=== PATIENT | male | born 1995 | race Caucasian/White ===

== ENCOUNTER → 2021-02-09 14:36 | Outpatient (CLI) | payer BC, SELFPAY | PROVIDERS: PCP Family Medicine; Referring Provider Family Medicine; Visit Provider Family Medicine | DX: Z20.822 Contact with and (suspected) exposure to COVID-19 (principal) | CPT/HCPCS: 87635; U0005; U0003 ==

== ENCOUNTER 2021-08-17 00:51 | Inpatient (IN) | payer BC, SELFPAY ==
[2021-08-17] VITALS (55 sets, daily range): BP systolic 119–212; BP diastolic 66–128; PULSE 78–180; RESP 15–36; TEMP 36.3–36.8; O2SAT 88–100; BMI 65.0; BMI 64.9
--- NOTE | 2021-08-17 01:16 | EKG12_ITS ---
Test Reason : DYSRHYTHMIA Blood Pressure : / mmHG Vent. Rate : 125 BPM Atrial Rate : 125 BPM P-R Int : 182 ms QRS Dur : 090 ms QT Int : 290 ms P-R-T Axes : 056 066 015 degrees QTc Int : [address] & T wave abnormality, consider inferior ischemia Abnormal ECG Confirmed by MEENU BRUNSON, MOISE ([id number]), newspaper photo editor OLIVER CHAHAL ([id number]) on 08/18/2021 8:34:16 AM Referred By: MARCY Confirmed By:MOISE CORRIGAN MD
[2021-08-17] MEDS: 0.9% Normal Saline 1,000 ML 999 ML IV ×2 (01:23→02:22)
[2021-08-17 01:29] LABS: Absolute Lymphocyte Count 2.99 X10^3/uL (0.83-4.51); Absolute Neutrophil Count 5.4 X10^3/uL (2.0-7.7); Basophil# 0.04 X10^3/uL; Basophil% 0.4 % (0-1); Eosinophils% 2.1 % (0-5); Hematocrit 39.6 % (40-54); Hemoglobin 13.8 g/dL (13.0-16.5); Lymphocyte # 2.99 X10^3/ul (0.83-4.51); Lymphocyte % 30.7 % (19-41); Mean Corp Hgb Conc 34.8 g/dL (32-36); Mean Corpuscular Hgb 31.2 pg (27.0-32.0); Mean Corpuscular Volume 89.6 fL (80-94); Mean Platelet Vol. 11.6 fl (6.2-12.0); Monocyte# 1.05 X10^3/uL; Monocyte% 10.8 % (0-10); NRBC Flagged by Analyzer 0 % (0-5); Neutrophil # 5.42 X10^3/uL (2.7-7.7); Neutrophil % 55.5 % (47-70); Platelet Count 211 K/mm3 (150-450); RBC Distribution Width CV 12.1 % (11.6-14.6); Red Blood Count 4.42 M/mm3 (4.6-6.2); White Blood Count 9.8 K/mm3 (4.4-11.0)
--- NOTE | 2021-08-17 01:35 | EKG12_ITS ---
Test Reason : REPEAT EKG Blood Pressure : / mmHG Vent. Rate : 122 BPM Atrial Rate : 094 BPM P-R Int : 000 ms QRS Dur : 100 ms QT Int : 314 ms P-R-T Axes : 000 065 -16 degrees QTc Int : 447 ms Atrial fibrillation T wave abnormality, consider inferior ischemia Abnormal ECG Confirmed by MEENU BRUNSON, MOISE ([id number]), editor trade journal OLIVER CHAHAL ([id number]) on 08/18/2021 8:34:38 AM Referred By: MARCY Confirmed By:MOISE CORRIGAN MD
[2021-08-17 01:39] LABS: D-Dimer Quantitative (DVT/PE) < 0.27 FEU/ug/m (0.27-0.49)
[2021-08-17] MEDS: Adenosine 6 MG/2 ML Syringe IV (01:39)
[2021-08-17] MEDS: Adenosine 6 MG/2 ML Syringe 12 MG IV ×2 (01:43→01:46)
[2021-08-17 01:52] LABS: Anion Gap 8 (5-15); BUN 11 mg/dL (7-18); BUN/Creat Ratio 10.4 RATIO (10-20); Calcium,Total 9.9 mg/dL (8.5-10.1); Chloride 106 mmol/L (98-107); Creatinine, Serum 1.06 mg/dL (0.70-1.30); EST Glomerular Filtration Rate 91 mL/min (>60); Est Glom Filt Rate - Afr Amer 110 mL/min (>60); Estimated Creatinine Clearance 117.95 ml/min; Glucose 99 mg/dL (74-106); Potassium 3.1 mmol/L (3.5-5.1); Sodium Level 140 mmol/L (136-145); Thyroid Stim Hormone (TSH) 3.31 uIU/mL (0.358-3.74); Troponin-I HS 5 pg/mL (3.0-78.0)
--- NOTE | 2021-08-17 02:08 | EKG12_ITS ---
Test Reason : SVT Blood Pressure : / mmHG Vent. Rate : 180 BPM Atrial Rate : 180 BPM P-R Int : 104 ms QRS Dur : 086 ms QT Int : 272 ms P-R-T Axes : 000 085 237 degrees QTc Int : 471 ms Atrial flutter with 2 to [address] abnormality, possible lateral subendocardial injury Abnormal ECG Confirmed by MEENU BRUNSON, MOISE ([id number]), legal editor OLIVER CHAHAL ([id number]) on 08/18/2021 8:34:56 AM Referred By: MARCY Confirmed By:MOISE CORRIGAN MD
[2021-08-17] MEDS: dilTIAZem 25 MG/5 ML Vial 20 MG IV BOLUS ×2 (02:21→14:12)
[2021-08-17] MEDS: Midazolam 5 MG/ML Syringe IV ×2 (02:23→03:33)
[2021-08-17] MEDS: Propofol 200 MG/20 ML Vial IV BOLUS ×2 (02:23→03:36)
[2021-08-17] MEDS: Potassium Chloride 10mEq/100mL 10 MEQ/100 ML IV.SOLN. 100 MEQ IV BOLUS ×2 (02:25→03:26)
--- NOTE | 2021-08-17 02:41 | PCM.HP.STD ---
HPI - General General Date of Admission: 08/17/21 Date of Service: 08/17/21 Chief Complaint: Palpitations, racing heart. HPI Narrative The patient is a 26 y/o M w/ PMHx: Morbid Obesity, Chew Tobacco use who presents to the [facility] ED on 08/17/21 with history of intermittent episodes of racing heart, palpitations which have been on and off for the last 3 weeks with at least 3 episodes in the hour prior to ED presentation however had not been resolving and was more frequent prompting ED evaluation. Following ED interventions patient did transition to A. fib RVR and noted that his heart felt like it was beating irregular at this point but denies any chest pain, lightheadedness, dizziness. Work-up in the ED included T 97.3, heart rate initially 132 with decrease then to 107 however jumped up again to 175, BP initially 201/122 with most recent repeat 151/80, respiratory rate 25, 99% on room air, CBC with WBC 9.8, hemoglobin 13.8, platelet 211 without marked shift, D-dimer less than 0.27, BMP unremarkable aside potassium 3.1, magnesium 2.0, TSH 3.31, troponin. In the ED patient administered initially adenosine 6 mg IV x 1 followed up by adenosine 12 mg IV x 1 in addition to normal saline bolus x2 however it was unsuccessful therefore patient admitted to start midazolam and propofol for attempted cardioversion which transitioned him to PAF with RVR with following this Cardizem 20 mg IV bolus x1. PFSH Medical History Morbidly obese Tobacco use Medical History no medical history Home Medications No Known/Unobtainable [No Known Home Medications] 04/02/13 [History Last Taken Unknown] Allergy/AdvReac Type Severity Reaction Status Date / Time amoxicillin Allergy Rash Verified 08/17/21 00:55 Family History (Updated 08/17/21 @ 03:[address] Marika Mosquera MD) Father Diabetes Hypertension Family History other other (No marked maternal family history including DM, CA, HD.) Surgical History (Updated 08/17/21 @ 03:[address] Marika Mosquera MD) S/P adenoidectomy Social History (Updated 08/17/21 @ 03:[address] Marika Mosquera MD) household members: family Smokeless tobacco user: chewing tobacco and other alcohol intake: never substance use type: does not use ROS ROS Narrative Admission Review of Systems: CONSTITUTIONAL: No weight loss, fever, chills, + weakness or fatigue. HEENT: Eyes: No visual loss, blurred vision, double vision or yellow sclerae. Ears, Nose, Throat: No hearing loss, sneezing, congestion, runny nose or sore throat. SKIN: No rash or itching, lesions, wounds. CARDIOVASCULAR: + Palpitations/racing heart, No chest pain, chest pressure or chest discomfort, edema, orthopnea, syncopal events. RESPIRATORY: No shortness of breath, cough or sputum, wheezing, hemoptysis. GASTROINTESTINAL: No anorexia, nausea, vomiting or diarrhea, abdominal pain, melena, BRBPR. GENITOURINARY: No dysuria, frequency, urgency or retention. NEUROLOGICAL: + Headache, No dizziness, syncope, paralysis, ataxia, numbness or tingling in the extremities, focal weakness, change in bowel or bladder control, seizure. MUSCULOSKELETAL: No muscle, back pain, joint pain or stiffness. HEMATOLOGIC: No anemia, bleeding or bruising. LYMPHATICS: No enlarged nodes. No history of splenectomy. PSYCHIATRIC: No history of depression or anxiety. ENDOCRINOLOGIC: No reports of sweating, cold or heat intolerance. No polyuria or polydipsia. ALLERGIES: No history of asthma, hives, eczema or rhinitis. Vital Signs Vital Signs Vital Signs: 08/17/21 00:53 08/17/21 00:55 08/17/21 01:11 Temperature 97.3 F L Temperature Source Oral Pulse Rate 132 H 107 H Pulse Rate [1 (Initial Baseline)] Pulse Rate [2] Pulse Rate [3] Pulse Rate [4] Pulse Rate [5] Pulse Rate [6] Respiratory Rate 25 H 23 H Respiratory Rate [1 (Initial Baseline)] Respiratory Rate [2] Respiratory Rate [3] Respiratory Rate [4] Respiratory Rate [5] Respiratory Rate [6] Respiratory Effort Normal Non-Labored Blood Pressure 201/122 H 212/109 H Blood Pressure [1 (Initial Baseline)] Blood Pressure [6] Blood Pressure Mean 148 143 Pulse Ox 99 Oxygen Delivery Method Room Air Room Air Oxygen Delivery Method [1 (Initial Baseline)] Oxygen Delivery Method [2] Oxygen Delivery Method [3] Oxygen Delivery Method [4] Oxygen Delivery Method [5] Oxygen Delivery Method [6] Oxygen Flow Rate (L/min) Oxygen Flow Rate (L/min) [2] Oxygen Flow Rate (L/min) [4] Oxygen Flow Rate (L/min) [5] Oxygen Flow Rate (L/min) [6] Fraction of Inspired Oxygen (FIO2) [3] 08/17/21 01:38 08/17/21 01:55 08/17/21 01:58 Temperature Temperature Source Pulse Rate 175 H 172 H Pulse Rate [1 (Initial Baseline)] Pulse Rate [2] Pulse Rate [3] Pulse Rate [4] Pulse Rate [5] Pulse Rate [6] Respiratory Rate 24 H 35 H Respiratory Rate [1 (Initial Baseline)] Respiratory Rate [2] Respiratory Rate [3] Respiratory Rate [4] Respiratory Rate [5] Respiratory Rate [6] Respiratory Effort Blood Pressure 151/80 H 143/98 H Blood Pressure [1 (Initial Baseline)] Blood Pressure [6] Blood Pressure Mean 103 Pulse Ox 98 96 Oxygen Delivery Method Room Air Nasal Cannula Oxygen Delivery Method [1 (Initial Baseline)] Oxygen Delivery Method [2] Oxygen Delivery Method [3] Oxygen Delivery Method [4] Oxygen Delivery Method [5] Oxygen Delivery Method [6] Oxygen Flow Rate (L/min) 2 Oxygen Flow Rate (L/min) [2] Oxygen Flow Rate (L/min) [4] Oxygen Flow Rate (L/min) [5] Oxygen Flow Rate (L/min) [6] Fraction of Inspired Oxygen (FIO2) [3] 08/17/21 02:01 08/17/21 02:07 08/17/21 02:10 Temperature Temperature Source Pulse Rate Pulse Rate [1 (Initial Baseline)] 167 H Pulse Rate [2] 167 H Pulse Rate [3] 178 H Pulse Rate [4] 180 H Pulse Rate [5] 131 H Pulse Rate [6] 174 H Respiratory Rate Respiratory Rate [1 (Initial Baseline)] 36 H Respiratory Rate [2] 35 H Respiratory Rate [3] 18 Respiratory Rate [4] 30 H Respiratory Rate [5] 30 H Respiratory Rate [6] 25 H Respiratory Effort Blood Pressure Blood Pressure [1 (Initial Baseline)] 143/98 H Blood Pressure [6] 137/67 H Blood Pressure Mean Pulse Ox Oxygen Delivery Method Nasal Cannula Nasal Cannula Oxygen Delivery Method [1 (Initial Baseline)] Nasal Cannula Oxygen Delivery Method [2] Nasal Cannula Oxygen Delivery Method [3] Nasal Cannula Oxygen Delivery Method [4] Nasal Cannula Oxygen Delivery Method [5] Nasal Cannula Oxygen Delivery Method [6] Nasal Cannula Oxygen Flow Rate (L/min) 4 4 Oxygen Flow Rate (L/min) [2] 2 Oxygen Flow Rate (L/min) [4] 2 Oxygen Flow Rate (L/min) [5] 2 Oxygen Flow Rate (L/min) [6] 4 Fraction of Inspired Oxygen (FIO2) [3] 2 08/17/21 02:15 03 02:20 08/17/21 02:22 Temperature Temperature Source Pulse Rate Pulse Rate [1 (Initial Baseline)] Pulse Rate [2] Pulse Rate [3] Pulse Rate [4] Pulse Rate [5] Pulse Rate [6] Respiratory Rate Respiratory Rate [1 (Initial Baseline)] Respiratory Rate [2] Respiratory Rate [3] Respiratory Rate [4] Respiratory Rate [5] Respiratory Rate [6] Respiratory Effort Blood Pressure Blood Pressure [1 (Initial Baseline)] Blood Pressure [6] Blood Pressure Mean Pulse Ox Oxygen Delivery Method Nasal Cannula Nasal Cannula Nasal Cannula Oxygen Delivery Method [1 (Initial Baseline)] Oxygen Delivery Method [2] Oxygen Delivery Method [3] Oxygen Delivery Method [4] Oxygen Delivery Method [5] Oxygen Delivery Method [6] Oxygen Flow Rate (L/min) 4 4 96 Oxygen Flow Rate (L/min) [2] Oxygen Flow Rate (L/min) [4] Oxygen Flow Rate (L/min) [5] Oxygen Flow Rate (L/min) [6] Fraction of Inspired Oxygen (FIO2) [3] 08/17/21 02:25 Temperature Temperature Source Pulse Rate 109 H Pulse Rate [1 (Initial Baseline)] Pulse Rate [2] Pulse Rate [3] Pulse Rate [4] Pulse Rate [5] Pulse Rate [6] Respiratory Rate 23 H Respiratory Rate [1 (Initial Baseline)] Respiratory Rate [2] Respiratory Rate [3] Respiratory Rate [4] Respiratory Rate [5] Respiratory Rate [6] Respiratory Effort Blood Pressure 127/80 H Blood Pressure [1 (Initial Baseline)] Blood Pressure [6] Blood Pressure Mean 95 Pulse Ox 96 Oxygen Delivery Method Nasal Cannula Oxygen Delivery Method [1 (Initial Baseline)] Oxygen Delivery Method [2] Oxygen Delivery Method [3] Oxygen Delivery Method [4] Oxygen Delivery Method [5] Oxygen Delivery Method [6] Oxygen Flow Rate (L/min) Oxygen Flow Rate (L/min) [2] Oxygen Flow Rate (L/min) [4] Oxygen Flow Rate (L/min) [5] Oxygen Flow Rate (L/min) [6] Fraction of Inspired Oxygen (FIO2) [3] Weight Weight: 479 lb 1.032 oz Body Mass Index (BMI) 65.0 Physical Exam Narrative Physical Examination: General: Awake, alert, oriented x 3 and cooperative, seated upright in the ED bed, fatigued otherwise no acute distress, does report that he feels like his heart is beating irregularly. Skin: Normal color, normal turgor, no icterus, no cyanosis. HEENT: AT/NC, EOMI, PERRLA, MMM, no carotid bruits or JVD noted; however, thickened neck makes examination difficult. Lungs: Diminished, distant, greater bases, appropriate effort, no rales, ronchi or wheezing. Heart: Irregular irregular; no gallop, rub audible. Abdomen: Soft, morbidly obese, NTTP, no obvious distention but habitus makes examination difficult, distant normal BS, no obvious HSM; however, habitus makes examination difficult. Extremities: No cyanosis, clubbing, or edema. Neurological: Patient awake, alert, oriented as noted, cognitive function intact; pupils equally reactive to light and accommodation, cranial nerves II-XII grossly normal, moving all 4 extremities, no focal deficits, strength mildly moderately global decrease secondary to acute presentation. Psychiatric: Affect appears fatigued, no acute evidence of depressive or anxiety feelings. Results Lab / Micro Data Result Diagrams: 08/17/21 01:03 08/17/21 01:03 Labs: Laboratory Results - last 24 hr 08/17/21 01:03: D-Dimer Quant (PE/DVT) < 0.27 L 08/17/21 01:03: Sodium 140, Potassium 3.1 L, Chloride 106, Carbon Dioxide 26.0, Anion Gap 8, BUN 11, Creatinine 1.06, Estim Creat Clear Calc 117.95, Est GFR (MDRD) Af Amer 110, Est GFR (MDRD) Non-Af 91, BUN/Creatinine Ratio 10.4, Glucose 99, Calcium 9.9, Magnesium 2.0, Troponin I High Sens 5, TSH 3.31 08/17/21 01:03: WBC 9.8, RBC 4.42 L, Hgb 13.8, Hct 39.6 L, MCV 89.6, MCH 31.2, MCHC 34.8, RDW Std Deviation 40.0, RDW Coeff of Angy 12.1, Plt Count 211, MPV 11.6, Immature Gran % (Auto) 0.500, Neut % (Auto) 55.5, Lymph % (Auto) 30.7, [place] % (Auto) 10.8 H, Eos % (Auto) 2.1, Baso % (Auto) 0.4, Absolute Neuts (auto) 5.4, Absolute Lymphs (auto) 2.99, Nucleated RBC % 0 Assessment & Plan Assessment/Plan (1) Sustained SVT: (2) Atrial fibrillation with RVR: PLAN: The patient is a 26 y/o M w/ PMHx: Morbid Obesity, Tobacco use who presents to the [facility] ED on 08/17/21 with history of intermittent episodes of racing heart, palpitations which have been on and off for the last 3 weeks with at least 3 episodes in the hour prior to ED presentation however had not been resolving and was more frequent prompting ED evaluation. #1. Symptomatic supraventricular ventricular tachycardia-->PAF with RVR: In the ED patient initially trialed with adenosine both the 6 and 12 mg doses unsuccessfully eventually administered midazolam and propofol for cardioversion-->potential conversion to PAF w/ RVR followed by a Cardizem 20 mg IV bolus x 1. Will admit to PCU, maintain on monitor, cycle cardiac enzymes to be cautious, magnesium and TSH already obtained in the ED as noted, plan repeat EKG as needed, will request cardiology evaluation, per discussion with cardiology with ED physician planned attempt again now upon admission for repeat cardioversion and if successful will attempt initiation of oral beta-hossein therapy however if patient remains in A. fib RVR will initiate Cardizem drip pending cardiology evaluation, request echocardiogram. UDS is also been requested. #2. Hypokalemia: Admission K+ 3.1, magnesium 2.0 per ED, supplementation given in the ED, repeat level in AM. #3. Elevated BP without hypertension: Quite potentially associate with #1, will continue to monitor and if further elevations may need to consider additional BP regimen, as needed IV hydralazine in interim. #4. Morbid Obesity: Weight loss and lifestyle changes encouraged, nutrition consulted. #5. Chew Tobacco Abuse: Encouraged cessation, inpatient consultation per RT, NR if desired but if able hold given presentation. #6. DVT prophylaxis: SCDs, Eliquis. Charges/Coding Visit Charges Inpatient E&M: 35689 Init Hosp L3
[2021-08-17] MEDS: dilTIAZem 25 MG/5 ML Vial 10 MG IV BOLUS (03:43)
[2021-08-17] MEDS: APIXABAN 5 MG TABLET PO ×3 (04:00→20:08)
--- NOTE | 2021-08-17 04:00 | EDS_ITS ---
HPI History of Present Illness Chief Complaint: Palpitations Narrative Narrative: Patient is a 26-year-old male with no reported significant past medical history. He states that over the past week he has been having intermittent bouts where he feels like his heart is racing. He states this typically occurs when he is trying to lay down at night. He states that he does have a home pulse ox and has been checking his heart rate during this time and has been approximately 180. He states that as time is gone by he has noticed that the symptoms are occurring more frequently and lasting longer. He does admit to using 2 cans of smokeless tobacco daily as well as dry scooping his preworkout powder. However he denies any illicit drug use. He also denies any family history of cardiac dysrhythmias. And he denies any recent surgery travel or history of DVT/PE. However as he reports that his palpitations are worsening he presents for evaluation [facility] Medical History Morbidly obese Tobacco use Medical History no medical history Home Medications No Known/Unobtainable [No Known Home Medications] 04/02/13 [History Last Taken Unknown] Allergy/AdvReac Type Severity Reaction Status Date / Time amoxicillin Allergy Rash Verified 08/17/21 00:55 Family History (Updated 08/17/21 @ 03:[address] Marika Mosquera MD) Father Diabetes Hypertension Surgical History (Updated 08/17/21 @ 03:[address] Marika Mosquera MD) S/P adenoidectomy Social History (Updated 08/17/21 @ 03:[address] Marika Mosquera MD) household members: family Smokeless tobacco user: chewing tobacco and other alcohol intake: never substance use type: does not use ROS ROS ED Constitutional Constitutional ED: Denies chills or fever(s) ENT ENT ED: Denies sore throat Cardiovascular Cardiovascular: Reports palpitations and racing heartbeat; Denies chest pain Respiratory/Chest Respiratory/Chest: Denies cough or dyspnea Gastrointestinal Gastrointestinal: Denies abdominal pain, diarrhea, nausea or vomiting Genitourinary Genitourinary ED: Denies dysuria Musculoskeletal Musculoskeletal: Denies myalgias Integumentary Denies rash Neurologic Neurologic: Denies headache(s) Hematologic/Lymphatic Hematologic/Lymphatic: Denies easy bleeding or easy bruising EXAM Physical Exam Const Vital Signs: 08/17/21 00:53 08/17/21 00:55 08/17/21 01:11 Temperature 97.3 F L Temperature Source Oral Pulse Rate 132 H 107 H Pulse Rate [1 (Initial Baseline)] Pulse Rate [2] Pulse Rate [3] Pulse Rate [4] Pulse Rate [5] Pulse Rate [6] Respiratory Rate 25 H 23 H Respiratory Rate [1 (Initial Baseline)] Respiratory Rate [2] Respiratory Rate [3] Respiratory Rate [4] Respiratory Rate [5] Respiratory Rate [6] Respiratory Effort Normal Non-Labored Blood Pressure 201/122 H 212/109 H Blood Pressure [1 (Initial Baseline)] Blood Pressure [6] Blood Pressure Mean 148 143 Pulse Ox 99 Oxygen Delivery Method Room Air Room Air Oxygen Delivery Method [1 (Initial Baseline)] Oxygen Delivery Method [2] Oxygen Delivery Method [3] Oxygen Delivery Method [4] Oxygen Delivery Method [5] Oxygen Delivery Method [6] Oxygen Flow Rate (L/min) Oxygen Flow Rate (L/min) [2] Oxygen Flow Rate (L/min) [4] Oxygen Flow Rate (L/min) [5] Oxygen Flow Rate (L/min) [6] Fraction of Inspired Oxygen (FIO2) [3] 08/17/21 01:38 08/17/21 01:55 08/17/21 01:58 Temperature Temperature Source Pulse Rate 175 H 172 H Pulse Rate [1 (Initial Baseline)] Pulse Rate [2] Pulse Rate [3] Pulse Rate [4] Pulse Rate [5] Pulse Rate [6] Respiratory Rate 24 H 35 H Respiratory Rate [1 (Initial Baseline)] Respiratory Rate [2] Respiratory Rate [3] Respiratory Rate [4] Respiratory Rate [5] Respiratory Rate [6] Respiratory Effort Blood Pressure 151/80 H 143/98 H Blood Pressure [1 (Initial Baseline)] Blood Pressure [6] Blood Pressure Mean 103 Pulse Ox 98 96 Oxygen Delivery Method Room Air Nasal Cannula Oxygen Delivery Method [1 (Initial Baseline)] Oxygen Delivery Method [2] Oxygen Delivery Method [3] Oxygen Delivery Method [4] Oxygen Delivery Method [5] Oxygen Delivery Method [6] Oxygen Flow Rate (L/min) 2 Oxygen Flow Rate (L/min) [2] Oxygen Flow Rate (L/min) [4] Oxygen Flow Rate (L/min) [5] Oxygen Flow Rate (L/min) [6] Fraction of Inspired Oxygen (FIO2) [3] 08/17/21 02:01 08/17/21 02:07 08/17/21 02:10 Temperature Temperature Source Pulse Rate Pulse Rate [1 (Initial Baseline)] 167 H Pulse Rate [2] 167 H Pulse Rate [3] 178 H Pulse Rate [4] 180 H Pulse Rate [5] 131 H Pulse Rate [6] 174 H Respiratory Rate Respiratory Rate [1 (Initial Baseline)] 36 H Respiratory Rate [2] 35 H Respiratory Rate [3] 18 Respiratory Rate [4] 30 H Respiratory Rate [5] 30 H Respiratory Rate [6] 25 H Respiratory Effort Blood Pressure Blood Pressure [1 (Initial Baseline)] 143/98 H Blood Pressure [6] 137/67 H Blood Pressure Mean Pulse Ox Oxygen Delivery Method Nasal Cannula Nasal Cannula Oxygen Delivery Method [1 (Initial Baseline)] Nasal Cannula Oxygen Delivery Method [2] Nasal Cannula Oxygen Delivery Method [3] Nasal Cannula Oxygen Delivery Method [4] Nasal Cannula Oxygen Delivery Method [5] Nasal Cannula Oxygen Delivery Method [6] Nasal Cannula Oxygen Flow Rate (L/min) 4 4 Oxygen Flow Rate (L/min) [2] 2 Oxygen Flow Rate (L/min) [4] 2 Oxygen Flow Rate (L/min) [5] 2 Oxygen Flow Rate (L/min) [6] 4 Fraction of Inspired Oxygen (FIO2) [3] 2 08/17/21 02:15 08/17/21 02:20 08/17/21 02:22 Temperature Temperature Source Pulse Rate Pulse Rate [1 (Initial Baseline)] Pulse Rate [2] Pulse Rate [3] Pulse Rate [4] Pulse Rate [5] Pulse Rate [6] Respiratory Rate Respiratory Rate [1 (Initial Baseline)] Respiratory Rate [2] Respiratory Rate [3] Respiratory Rate [4] Respiratory Rate [5] Respiratory Rate [6] Respiratory Effort Blood Pressure Blood Pressure [1 (Initial Baseline)] Blood Pressure [6] Blood Pressure Mean Pulse Ox Oxygen Delivery Method Nasal Cannula Nasal Cannula Nasal Cannula Oxygen Delivery Method [1 (Initial Baseline)] Oxygen Delivery Method [2] Oxygen Delivery Method [3] Oxygen Delivery Method [4] Oxygen Delivery Method [5] Oxygen Delivery Method [6] Oxygen Flow Rate (L/min) 4 4 96 Oxygen Flow Rate (L/min) [2] Oxygen Flow Rate (L/min) [4] Oxygen Flow Rate (L/min) [5] Oxygen Flow Rate (L/min) [6] Fraction of Inspired Oxygen (FIO2) [3] 08/17/21 02:25 08/17/21 02:26 08/17/21 02:30 Temperature Temperature Source Pulse Rate 109 H 102 H 92 Pulse Rate [1 (Initial Baseline)] Pulse Rate [2] Pulse Rate [3] Pulse Rate [4] Pulse Rate [5] Pulse Rate [6] Respiratory Rate 23 H 21 H 23 H Respiratory Rate [1 (Initial Baseline)] Respiratory Rate [2] Respiratory Rate [3] Respiratory Rate [4] Respiratory Rate [5] Respiratory Rate [6] Respiratory Effort Blood Pressure 127/80 H 128/66 H 130/74 H Blood Pressure [1 (Initial Baseline)] Blood Pressure [6] Blood Pressure Mean 95 86 92 Pulse Ox 96 96 96 Oxygen Delivery Method Nasal Cannula Nasal Cannula Nasal Cannula Oxygen Delivery Method [1 (Initial Baseline)] Oxygen Delivery Method [2] Oxygen Delivery Method [3] Oxygen Delivery Method [4] Oxygen Delivery Method [5] Oxygen Delivery Method [6] Oxygen Flow Rate (L/min) 4 4 Oxygen Flow Rate (L/min) [2] Oxygen Flow Rate (L/min) [4] Oxygen Flow Rate (L/min) [5] Oxygen Flow Rate (L/min) [6] Fraction of Inspired Oxygen (FIO2) [3] 08/17/21 02:48 Temperature Temperature Source Pulse Rate 111 H Pulse Rate [1 (Initial Baseline)] Pulse Rate [2] Pulse Rate [3] Pulse Rate [4] Pulse Rate [5] Pulse Rate [6] Respiratory Rate 24 H Respiratory Rate [1 (Initial Baseline)] Respiratory Rate [2] Respiratory Rate [3] Respiratory Rate [4] Respiratory Rate [5] Respiratory Rate [6] Respiratory Effort Blood Pressure 156/80 H Blood Pressure [1 (Initial Baseline)] Blood Pressure [6] Blood Pressure Mean 105 Pulse Ox 98 Oxygen Delivery Method Nasal Cannula Oxygen Delivery Method [1 (Initial Baseline)] Oxygen Delivery Method [2] Oxygen Delivery Method [3] Oxygen Delivery Method [4] Oxygen Delivery Method [5] Oxygen Delivery Method [6] Oxygen Flow Rate (L/min) 4 Oxygen Flow Rate (L/min) [2] Oxygen Flow Rate (L/min) [4] Oxygen Flow Rate (L/min) [5] Oxygen Flow Rate (L/min) [6] Fraction of Inspired Oxygen (FIO2) [3] Positive well nourished, well developed and obese General Appearance ED: well developed Nutritional Appearance: obese HEENT Reports moist mucous membranes Eyes PERRL and EOMs intact bilaterally Neck supple Resp normal respiratory effort and clear to auscultation bilaterally Cardio regular rhythm Rate: tachycardic and other Other Details: Radial pulses are +2-4 bilaterally are equal and symmetric GI normal to inspection, nondistended, normoactive bowel sounds, non-tender, non- distended and no masses Auscultation: normoactive bowel sounds Palpation: soft Extremity normal to inspection Extremity Narrative: No asymmetric edema no pitting edema negative Homans' sign bilaterally Neuro oriented x3 and CN's II-XII intact bilaterally Sensorium / Orientation: alert Motor Exam: strength 5/5 throughout Psych mental status grossly normal Skin no rashes or lesions noted MDM MDM MDM Narrative Medical decision making narrative: Patient presented to the ER mildly tachycardic but in sinus rhythm. With his report of of palpitations a basic work-up was ordered. While blood work was pending and the patient suddenly had a change to his heart rate and rhythm. His heart rate increased to 180 to 200 bpm and it was narrow complex tachycardia that was regular nature without P waves indicating he was in SVT. Patient was given 6 then 2 doses of 12 mg of adenosine. Despite this there was no resolution of his SVT. Therefore patient underwent cardioversion. Following the cardioversion he was now in atrial fibrillation testing with RVR as his heart rate was approximately 130. He was given a Cardizem bolus and did have improvement of the heart rate down to 95 to 100 bpm. Based on the patient's rapidly evolving symptoms I did not feel safe f or him to be discharged so he will be admitted to the medicine service. I also discussed the case with cardiology who feels patient should undergo cardioversion once again as we know his atrial fibrillation has been less than 48 hours in duration because it did not begin until patient underwent cardioversion for SVT. Therefore patient was cardioverted once again. Despite maxing out the electricity at 360 J there was no resolution of the atrial fibrillation. Therefore patient will be given Eliquis for DVT/PE prophylaxis and be placed on a Cardizem drip for rate control and admitted to the hospital for further care. Patient underwent conscious sedation along with synchronized electrical cardioversion twice. Patient was given a total of 150 mg of propofol for each sedation as well as 2.5 mg of Versed for sedation. For the initial cardioversion with SVT patient was converted with 100 J of energy. For the attempted cardioversion while patient was in atrial fibrillation a max amount of 360 J were used without any type of successful rhythm change. The total time frame of conscious sedation used for both cardioversions was approximately 20 to 25 minutes. Lab Data Attestation: I reviewed the patient's lab results. Labs: Laboratory Results - last 24 hr 08/17/21 08/17/21 08/17/21 01:03 01:03 01:03 WBC 9.8 RBC 4.42 L Hgb 13.8 Hct 39.6 L MCV 89.6 MCH 31.2 MCHC 34.8 RDW Std Deviation 40.0 RDW Coeff of Angy 12.1 Plt Count 211 MPV 11.6 Immature Gran % (Auto) 0.500 Neut % (Auto) 55.5 Lymph % (Auto) 30.7 [place] % (Auto) 10.8 H Eos % (Auto) 2.1 Baso % (Auto) 0.4 Absolute Neuts (auto) 5.4 Absolute Lymphs (auto) 2.99 Nucleated RBC % 0 D-Dimer Quant (PE/DVT) < 0.27 L Sodium 140 Potassium 3.1 L Chloride 106 Carbon Dioxide 26.0 Anion Gap 8 BUN 11 Creatinine 1.06 Estim Creat Clear Calc 117.95 Est GFR (MDRD) Af Amer 110 Est GFR (MDRD) Non-Af 91 BUN/Creatinine Ratio 10.4 Glucose 99 Calcium 9.9 Magnesium 2.0 Troponin I High Sens 5 TSH 3.31 Critical Care Time Critical Care Time: Yes Critical care time (excluding procedures): - (39) Discharge Plan Dx/Rx/DC Orders Clinical Impression: Sustained SVT, Atrial fibrillation with RVR Disposition Disposition: Acute Care [facility]
--- NOTE | 2021-08-17 04:33 | ECHOCS_ITS ---
Reason For Study: PAF Procedure This was a 2D Doppler, Color Flow transthoracic echocardiogram. The study was technically difficult. Due to body habitus. Contrast injection was performed. Exam performed portable in patient room. Left Ventricle Normal LV size. Left ventricular systolic function is normal. The estimated ejection fraction is 65 %. No regional wall motion abnormalities noted. Right Ventricle Normal RV size. Normal systolic function. Atria Normal left atrium. Normal right atrium. Mitral Valve Mitral valve not well visualized. Tricuspid Valve The tricuspid valve is not well visualized. Aortic Valve The aortic valve is not well visualized. Pulmonic Valve The pulmonic valve is not well visualized. Great Vessels Normal aortic root. The pulmonary artery is normal size. Normal inferior vena cava. Pericardium/Pleural No pericardial effusion. Medication Diluted definity 3.0ml given slow IV push to enhance endocardial definition. MMode/2D Measurements & Calculations LVIDd: 4.6 cm IVSd: 1.3 cm Ao root diam: 3.5 cm LVIDs: 3.4 cm LVPWd: 1.1 cm FS: 26.0 % LAV(MOD-sp4): 64.6 ml LA A4 area: 20.4 cm2 LA dimension(2D): 3.4 cm RA A4 area: 17.3 cm2 Doppler Measurements & Calculations MV E max mane: 86.5 cm/sec Ao V2 max: 122.1 cm/sec LV V1 max: 79.3 cm/sec Ao max P.0 mmHg LV V1 max P.5 mmHg PA V2 max: 148.5 cm/sec ECHO/Echo Complete W/ Contrast Interpretation Summary Normal LV size. Left ventricular systolic function is normal. The estimated ejection fraction is 65 %. Contrast injection was performed. The study was technically limited. Ordering Physician: Marika Mosquera Referring Physician: ZEINAB PCP Performed By: Shannan Gambino RDCS, RVT
[2021-08-17] MEDS: 0.9% Normal Saline 1,000 ML 100 ML IV (04:40)
[2021-08-17 05:43] LABS: Absolute Lymphocyte Count 1.45 X10^3/uL (0.83-4.51); Basophil# 0.03 X10^3/uL; Basophil% 0.4 % (0-1); Eosinophil# 0.12 X10^3/uL; Eosinophils% 1.6 % (0-5); Hematocrit 39.3 % (40-54); Hemoglobin 13.4 g/dL (13.0-16.5); Lymphocyte # 1.45 X10^3/ul (0.83-4.51); Lymphocyte % 19.7 % (19-41); Mean Corp Hgb Conc 34.1 g/dL (32-36); Mean Platelet Vol. 11.7 fl (6.2-12.0); Monocyte# 0.75 X10^3/uL; Monocyte% 10.2 % (0-10); NRBC Flagged by Analyzer 0 % (0-5); Neutrophil # 4.96 X10^3/uL (2.7-7.7); Neutrophil % 67.6 % (47-70); Platelet Count 183 K/mm3 (150-450); RBC Distribution Width CV 12.1 % (11.6-14.6); RBC Distribution Width SD 40.2 fl (35.1-43.9); Red Blood Count 4.32 M/mm3 (4.6-6.2); White Blood Count 7.4 K/mm3 (4.4-11.0)
[2021-08-17 06:01] LABS: ALB/GLOB Ratio 1.1 RATIO (0.9-2.4); AST(SGOT) 34 U/L (15-37); Alanine Aminotransfer ALT/SGPT 71 U/L (16-61); Albumin, Serum 3.7 g/dL (3.2-5.0); Alkaline Phosphatase 76 U/L (45-117); Anion Gap 10 (5-15); BUN 9 mg/dL (7-18); BUN/Creat Ratio 10.6 RATIO (10-20); Calcium,Total 8.7 mg/dL (8.5-10.1); Chloride 108 mmol/L (98-107); Creatinine, Serum 0.85 mg/dL (0.70-1.30); EST Glomerular Filtration Rate 117 mL/min (>60); Est Glom Filt Rate - Afr Amer 142 mL/min (>60); Estimated Creatinine Clearance 147.08 ml/min; Globulin 3.5 g/dL (2.2-4.2); Glucose 88 mg/dL (74-106); Potassium 3.8 mmol/L (3.5-5.1); Protein, Total 7.2 g/dL (6.4-8.2); Sodium Level 140 mmol/L (136-145); Troponin-I HS 6 pg/mL (3.0-78.0)
[2021-08-17 07:55] LABS: Troponin-I HS 7 pg/mL (3.0-78.0)
--- NOTE | 2021-08-17 09:01 | EKG12_ITS ---
Test Reason : RYTHM CHANGE Blood Pressure : / mmHG Vent. Rate : 149 BPM Atrial Rate : 131 BPM P-R Int : 000 ms QRS Dur : 078 ms QT Int : 304 ms P-R-T Axes : 000 071 -70 degrees QTc Int : 478 ms Supraventricular tachycardia -Prob atrial flutter with 2:1 ST & T wave abnormality, consider inferior ischemia Abnormal ECG When compared with ECG of 17-AUG-2021 10:37, MANUAL COMPARISON REQUIRED, DATA IS UNCONFIRMED Confirmed by MEENU BRUNSON, MOISE ([id number]), video tape editor OLIVER CHAHAL ([id number]) on 08/18/2021 9:24:11 AM Referred By: MEENU Confirmed By:MOISE CORRIGAN MD
--- NOTE | 2021-08-17 09:03 | CON.PCM.CA_ITS ---
Assessment & Plan Assessment/Plan (1) Atrial fibrillation with RVR: PLAN: He does have new onset atrial fibrillation which is less than 12 hours. He has received oral Eliquis and is currently on IV diltiazem. I would recommend an echocardiogram to assess his ventricular function and then attempt a repeat DC cardioversion. Depending on the findings further recommendations will be made. At this particular time his chads vasc score is probably 1. * He certainly needs to be evaluated for sleep apnea and to be treated for the above otherwise it is unlikely that he would remain in sinus rhythm. I have discussed this with him he understands and agrees to proceed. * * Thank you for allowing me to participate in the care of your patient. Please don't hesitate to call if any issues arise. HPI Consult Data Date of Consult: 08/17/21 HPI Narrative HPI Narrative: SAMY THOMAS, is a 26 M who presents to the emergency with intermittent episodes of his heart racing and palpitations over the last 3 weeks or so. They were not resolving and so he decided to present to the emergency room around 3 or 4 AM. He denied any chest pain lightheadedness or dizziness. He was seen in the emergency room his heart rate was initially 132 bpm and was thought to be in a supraventricular tachyarrhythmia for which he received adenosine 6 mg followed by 12 mg and then he had DC cardioversion. This subsequently transitioned him into atrial fibrillation. I was called about this then and suggested that they attempt to DC cardiovert him. This was attempted which was unsuccessful. He was therefore admitted to the telemetry unit. Of note he was noted to be hypertensive and his potassium was 3.1. This has been since replaced. He does have a history of obstructive sleep apnea and morbid obesity for which she has not seen anyone. He is not on any medications. He does consume caffeinated beverages. [facility] Medical History Morbidly obese Tobacco use Medical History no medical history Home Medications No Known/Unobtainable [No Known Home Medications] 04/02/13 [History Last Taken Unknown] Allergy/AdvReac Type Severity Reaction Status Date / Time amoxicillin Allergy Rash Verified 08/17/21 00:55 Family History Father Diabetes Hypertension Family History other Surgical History S/P adenoidectomy Social History adopted: No household members: family housing: house financial difficulty paying for basics: not very hard service: No current occupational status: employed current occupation: [employer] current occupational exposures/hazards: Yes pets and animals: No Smoking Status: Never smoker Smokeless tobacco user: chewing tobacco and other alcohol intake: never substance use type: does not use ROS Constitutional Constitutional: Denies fever(s) or weight loss Eyes Eyes: Reports systems reviewed and no addt'l complaints, except as documented ENT HEENT: Reports systems reviewed and no addt'l complaints, except as documented Cardiovascular Cardiovascular: Denies chest pain at rest, chest pain with activity, dyspnea at rest, dyspnea on exertion, edema, palpitations or paroxysmal nocturnal dyspnea Respiratory/Chest Respiratory/Chest: Denies dyspnea on exertion, productive cough, shortness of breath at rest or shortness of breath with exertion Gastrointestinal Gastrointestinal: Denies change in bowel habits, nausea, vomiting or weight changes Genitourinary Genitourinary: Denies difficulty urinating Musculoskeletal Musculoskeletal: Denies joint stiffness or muscle weakness Integumentary Integumentary: Denies lesions Neurologic Neurologic: Denies dizziness or syncope Psychiatric Psychiatric: Denies anxiety Endocrine Endocrinology: Denies excessive sweating or fatigue Hematologic/Lymphatic Hematologic/Lymphatic: Denies anemia Allergic/Immunologic Allergic/Immunologic: Denies seasonal rhinorrhea Physical Exam Const alert, oriented x3 and no apparent distress General Appearance: cooperative HEENT hearing grossly normal bilaterally Head and Scalp: atraumatic Eyes EOMs intact bilaterally Neck General: normal visual inspection Chest inspection of chest normal and palpation of chest normal Resp normal respiratory effort Auscultation: clear to auscultation bilaterally Cardio regular rate, regular rhythm, S1 normal heart sound and S2 normal heart sound Jugular Venous Distention: JVD GI normal to inspection, nondistended, normoactive bowel sounds Extremity normal capillary refill and no pedal edema Peripheral Pulses: Yes pulses 2+ throughout and femoral pulses present Skin no rashes or lesions noted Neuro oriented x3 and CN's II-XII intact bilaterally Psych Appearance: grossly normal and appropriate Risk Stratification Risk Stratification Applicable: No Objective Data Vital Signs: Vital Signs Temp Pulse Resp BP Pulse Ox 97.7 F L 104 H 23 H 145/91 H 96 08/17/21 06:16 08/17/21 08:00 08/17/21 08:00 08/17/21 08:00 08/17/21 08:00 Oxygen Flow Rate (L/min) [6] 4 Oxygen Flow Rate (L/min) [4] 2 Oxygen Flow Rate (L/min) [5] 2 Oxygen Flow Rate (L/min) [2] 2 Oxygen Flow Rate (L/min) [1 ( 2 Initial Baseline)] Oxygen Flow Rate (L/min) 4 Oxygen Delivery Method [6] Nasal Cannula Oxygen Delivery Method [4] Nasal Cannula Oxygen Delivery Method [5] Nasal Cannula Oxygen Delivery Method [3] Nasal Cannula Oxygen Delivery Method [2] Nasal Cannula Oxygen Delivery Method [1 ( Nasal Cannula Initial Baseline)] Oxygen Delivery Method Room Air Weight: 478 lb 9.977 oz Body Mass Index (BMI) 64.9 Intake & Output: Intake and Output for Last 24 Hours 08/15/21 08/16/21 08/17/21 23:59 23:59 23:59 Intake Total 2454.50 / 2454.50 Output Total 700 / 700 Balance 1754.50 / 1754.50 Lab / Micro Data Result Diagrams: 08/17/21 05:28 08/17/21 05:28 Labs: Laboratory Results - last 24 hr 08/17/21 01:03: D-Dimer Quant (PE/DVT) < 0.27 L 08/17/21 01:03: Sodium 140, Potassium 3.1 L, Chloride 106, Carbon Dioxide 26.0, Anion Gap 8, BUN 11, Creatinine 1.06, Estim Creat Clear Calc 117.95, Est GFR (MDRD) Af Amer 110, Est GFR (MDRD) Non-Af 91, BUN/Creatinine Ratio 10.4, Glucose 99, Calcium 9.9, Magnesium 2.0, Troponin I High Sens 5, TSH 3.31 08/17/21 01:03: WBC 9.8, RBC 4.42 L, Hgb 13.8, Hct 39.6 L, MCV 89.6, MCH 31.2, MCHC 34.8, RDW Std Deviation 40.0, RDW Coeff of Angy 12.1, Plt Count 211, MPV 11.6, Immature Gran % (Auto) 0.500, Neut % (Auto) 55.5, Lymph % (Auto) 30.7, [place] % (Auto) 10.8 H, Eos % (Auto) 2.1, Baso % (Auto) 0.4, Absolute Neuts (auto) 5.4, Absolute Lymphs (auto) 2.99, Nucleated RBC % 0 08/17/21 05:28: WBC 7.4, RBC 4.32 L, Hgb 13.4, Hct 39.3 L, MCV 91.0, MCH 31.0, MCHC 34.1, RDW Std Deviation 40.2, RDW Coeff of Angy 12.1, Plt Count 183, MPV 11.7, Immature Gran % (Auto) 0.500, Neut % (Auto) 67.6, Lymph % (Auto) 19.7, [place] % (Auto) 10.2 H, Eos % (Auto) 1.6, Baso % (Auto) 0.4, Absolute Neuts (auto) 5.0, Absolute Lymphs (auto) 1.45, Nucleated RBC % 0 08/17/21 05:28: Sodium 140, Potassium 3.8, Chloride 108 H, Carbon Dioxide 22.0, Anion Gap 10, BUN 9, Creatinine 0.85, Estim Creat Clear Calc 147.08, Est GFR (MDRD) Af Amer 142, Est GFR (MDRD) Non-Af 117, BUN/Creatinine Ratio 10.6, Glucose 88, Calcium 8.7, Total Bilirubin 0.30, AST 34, ALT 71 H, Alkaline Phosphatase 76, Troponin I High Sens 6, Total Protein 7.2, Albumin 3.7, Globulin 3.5, Albumin/Globulin Ratio 1.1 08/17/21 07:28: Troponin I High Sens 7 Cardiology Labs/Tests 08/17/21 01:03: D-Dimer Quant (PE/DVT) < 0.27 L 08/17/21 01:03: Sodium 140, Potassium 3.1 L, Chloride 106, Carbon Dioxide 26.0, Anion Gap 8, BUN 11, Creatinine 1.06, Est GFR (MDRD) Af Amer 110, Est GFR (MDRD) Non-Af 91, BUN/Creatinine Ratio 10.4, Glucose 99, Calcium 9.9, Magnesium 2.0 08/17/21 01:03: WBC 9.8, RBC 4.42 L, Hgb 13.8, Hct 39.6 L, MCV 89.6, MCH 31.2, MCHC 34.8, Plt Count 211, MPV 11.6, Immature Gran % (Auto) 0.500, Neut % (Auto) 55.5, Lymph % (Auto) 30.7, [place] % (Auto) 10.8 H, Eos % (Auto) 2.1, Baso % (Auto) 0.4, Absolute Neuts (auto) 5.4, Nucleated RBC % 0 08/17/21 05:28: WBC 7.4, RBC 4.32 L, Hgb 13.4, Hct 39.3 L, MCV 91.0, MCH 31.0, MCHC 34.1, Plt Count 183, MPV 11.7, Immature Gran % (Auto) 0.500, Neut % (Auto) 67.6, Lymph % (Auto) 19.7, [place] % (Auto) 10.2 H, Eos % (Auto) 1.6, Baso % (Auto) 0.4, Absolute Neuts (auto) 5.0, Nucleated RBC % 0 08/17/21 05:28: Sodium 140, Potassium 3.8, Chloride 108 H, Carbon Dioxide 22.0, Anion Gap 10, BUN 9, Creatinine 0.85, Est GFR (MDRD) Af Amer 142, Est GFR (MDRD) Non-Af 117, BUN/Creatinine Ratio 10.6, Glucose 88, Calcium 8.7, Total Bilirubin 0.30 Rhythm: EKG: ECHO: Stress Test: Cardiac Cath: PCI: CT Surgery: Holter monitor: EPS: PPM: CXR: Chest CT Scan:
--- NOTE | 2021-08-17 10:40 | CASEMGMT ---
RN CM Face to Face with patient for initial transition planning/care coordination assessment. RN CM introduced self and role at [facility]. Patient lying in bed, alert and oriented, parents at bedside. Patient willing to participate in assessment and is able to answer all questions appropriately. Care providers, pharmacy, and demographics verified. Patient wishes to discharge home, denies need for home health at this time. Patient states he has no further needs or concerns at this time. CM to follow for discharge planning needs that may arise. PCP: No PCP, patient provided with list Specialists: none Preferred Pharmacy: [facility] retail at discharge Insurance: [employer] Prescription Benefit: yes, [employer] Living Will/HPOA: none LNOK: parents Living Arrangements: Patient lives with parents in a 2 story home. Patient states he is independent and able to ambulate stairs. Transportation: self, parents DME/HHC: Patient states they have higher toliets at home. No previous HHC or SNF. Disposition Plan: Patient to discharge home with family support and follow-up plans in place. Edith WINTER, RN, CM
--- NOTE | 2021-08-17 13:26 | OP.PCM_ITS ---
Problems Associated Problem List Diagnoses (1) Atrial fibrillation with RVR: Operative Report Date of Procedure: 08/17/21 DC cardioversion. Patient with atrial fibrillation with a rapid ventricular response rate less than 24 hours in duration. Patient was seen by Dr. Greco of the critical care division and informed consent obtained. Anterior-posterior pads were applied. The patient was administered 200 mg of intravenous propofol. 360 J of biphasic synchronized DC cardioversion energy were applied with prompt reversal to sinus rhythm. Patient tolerated the procedure well. Conclusion: Successful DC cardioversion from atrial fibrillation to sinus rhythm Continue Eliquis 5 mg twice daily for a month Continue metoprolol 50 mg twice daily Would recommend follow-up with thiokol operator for sleep apnea evaluation
--- NOTE | 2021-08-17 13:57 | NURSING ---
1345- RN from [facility] transported Pt. back to PCU. On arrival to department, RN found Pt. to be in SVT. MD notified, 12-lead ekg performed. RN from [facility] gave bedside report to PUBLIC STENOGRAPHER. PUBLIC STENOGRAPHER in contact with MD regarding future orders for Pt.
--- NOTE | 2021-08-17 14:10 | PCM.OP.PRO ---
Procedure Report Date of Procedure: 08/17/21 CONSCIOUS SEDATION REPORT DATE OF SERVICE: August 17, 2021 BRIEF HISTORY OF PRESENT ILLNESS: The patient is a 26-year-old male who is currently admitted to the hospital with atrial fibrillation. The patient has never previously been diagnosed with obstructive sleep apnea. His echocardiogram revealed a normal ejection fraction. The patient is currently systemically anticoagulated on Eliquis. He denies any known prior anesthetic complications. PHYSICAL EXAMINATION: VITAL SIGNS: Reviewed and were acceptable. GENERAL: The patient is a morbidly obese male, in no apparent distress, speaking in full sentences. HEENT: Normocephalic, atraumatic. Mucous membranes are moist and pink. Good mouth opening noted. Trachea is midline. CHEST: S1, S2 irregularly irregular. No murmurs, rubs or gallops were noted. LUNGS: Clear to auscultation bilaterally without appreciable wheezes, rales or rhonchi. ABDOMEN: Soft, nontender, nondistended. Positive bowel sounds. EXTREMITIES: There is no clubbing, cyanosis or edema. ASA Class: II DESCRIPTION OF PROCEDURE: After confirmation of informed consent, the patient's anesthesia plan was reviewed in detail. Propofol was chosen. Risks and benefits were reviewed and the patient agreed to proceed. At 1303, the patient was given his first bolus of propofol. In total, the patient required 200 mg of propofol to achieve and maintain an appropriate level of sedation, after which time, he was given a 360 joule synchronized cardioversion by Dr. Hernadez at the bedside. This was successful in achieving normal sinus rhythm. The patient was monitored until 1315, at which time he reached his baseline mental status and function. The patient tolerated the procedure well. COMPLICATIONS: None ESTIMATED BLOOD LOSS: None RECOMMENDATIONS: Okay to recover in usual fashion. Recommend outpatient follow-up for diagnostic polysomnogram. Procedures Pulmonary 9xxxx: [id number] Con Sedation
--- NOTE | 2021-08-17 14:17 | PCM.HOSP.N ---
Hospitalist Note Mr. Hardwick is a 26-year-old male who presented with SVT to the emergency department early this morning. Patient states that he has had issues with this in the past however he is noticed this has become more frequent. He states he is predominantly noticing it during the evening hours and overnight. He is never been diagnosed formally with obstructive sleep apnea however he states that he would not be surprised if he suffered from this. He was cardioverted from SVT to atrial fibrillation with RVR in the emergency department. He was evaluated by cardiology earlier today and has been anticoagulated and placed on IV diltiazem. Plan is for cardioversion later today. Echocardiogram was ordered and pending at this time.
[2021-08-17] MEDS: 0.9% Saline Lock 10 ML Syringe IV (14:23)
[2021-08-17] MEDS: Metoprolol Tartrate 50 MG Tablet PO (20:06)
[2021-08-18] VITALS (10 sets, daily range): BP systolic 142–150; BP diastolic 86–105; PULSE 78–153; RESP 16–20; TEMP 36.7–37.1; O2SAT 94–100
--- NOTE | 2021-08-18 07:59 | EKG12_ITS ---
Test Reason : OTHER Blood Pressure : / mmHG Vent. Rate : 085 BPM Atrial Rate : 085 BPM P-R Int : 176 ms QRS Dur : 094 ms QT Int : 356 ms P-R-T Axes : 056 052 017 degrees QTc Int : 423 ms Normal sinus rhythm Normal ECG When compared with ECG of 17-AUG-2021 13:47, MANUAL COMPARISON REQUIRED, DATA IS UNCONFIRMED Confirmed by MEENU BRUNSON, MOISE ([id number]), purchasing expeditor OLIVER CHAHAL ([id number]) on 08/21/2021 11:22:32 AM Referred By: MEENU Confirmed By:MOISE CORRIGAN MD
[2021-08-18] MEDS: Metoprolol Tartrate 50 MG Tablet PO (08:35)
[2021-08-18] MEDS: APIXABAN 5 MG TABLET PO (08:35)
--- NOTE | 2021-08-18 08:38 | PN.CARD_ITS ---
Subjective Subjective Patient was seen and evaluated. Appears to be feeling much better this morning. Objective Data Vital Signs: Vital Signs Temp Pulse Resp BP Pulse Ox 98.7 F 95 18 145/86 H 100 08/18/21 08:24 08/18/21 08:35 08/18/21 08:24 08/18/21 08:35 08/18/21 08:24 Oxygen Flow Rate (L/min) [6] 4 Oxygen Flow Rate (L/min) [4] 2 Oxygen Flow Rate (L/min) [5] 2 Oxygen Flow Rate (L/min) [2] 2 Oxygen Flow Rate (L/min) [1 ( 2 Initial Baseline)] Oxygen Flow Rate (L/min) 4 Oxygen Delivery Method [6] Nasal Cannula Oxygen Delivery Method [4] Nasal Cannula Oxygen Delivery Method [5] Nasal Cannula Oxygen Delivery Method [3] Nasal Cannula Oxygen Delivery Method [2] Nasal Cannula Oxygen Delivery Method [1 ( Nasal Cannula Initial Baseline)] Oxygen Delivery Method Room Air Weight: 479 lb 1.032 oz Body Mass Index (BMI) 64.9 Intake & Output: Intake and Output for Last 24 Hours 08/16/21 08/17/21 08/18/21 23:59 23:59 23:59 Intake Total 4606.00 / 4606.00 Output Total 2125 / 2125 Balance 2481.00 / 2481.00 Lab / Micro Data Result Diagrams: 08/17/21 05:28 08/17/21 05:28 Cardiology Labs/Tests Rhythm: EKG: ECHO: Stress Test: Cardiac Cath: PCI: CT Surgery: Holter monitor: EPS: PPM: CXR: Chest CT Scan: Radiography Diagnostic Testing: Radiology Impression Echocardiogram 08/17/21 04:33 Interpretation Summary Normal LV size. Left ventricular systolic function is normal. The estimated ejection fraction is 65 %. Contrast injection was performed. The study was technically limited. __ Ordering Physician: Marika Mosquera Referring Physician: ZEINAB PCP Performed By: Shannan Gambino, ABY, RVT Physical Exam Const alert, oriented x3 and no apparent distress General Appearance: cooperative HEENT hearing grossly normal bilaterally Head and Scalp: atraumatic Eyes EOMs intact bilaterally Neck General: normal visual inspection Chest inspection of chest normal and palpation of chest normal Resp normal respiratory effort Auscultation: clear to auscultation bilaterally Cardio regular rate, regular rhythm, S1 normal heart sound and S2 normal heart sound Jugular Venous Distention: JVD GI normal to inspection, nondistended, normoactive bowel sounds Extremity normal capillary refill and no pedal edema Peripheral Pulses: Yes pulses 2+ throughout and femoral pulses present Skin no rashes or lesions noted Neuro oriented x3 and CN's II-XII intact bilaterally Psych Appearance: grossly normal and appropriate Assessment & Plan Assessment/Plan (1) Atrial fibrillation with RVR: PLAN: Patient presented with atrial fibrillation with rapid ventricular response rate likely due to severe sleep apnea and perhaps hypertension. EKG this morning demonstrates normal sinus rhythm with a rate of 83 bpm. Would recommend discharge on beta-hossein and Eliquis for at least a month Follow-up with the pulmonary service Follow-up with cardiology in 1 month.
--- NOTE | 2021-08-18 10:00 | DS.PCM_ITS ---
Providers Date of Admission: 08/17/21 Date of Discharge: 08/18/21 Primary Care Physician: Ebony Primary Care Phys Consultations 08/17/21 04:33 Consult: Cardiology Routine Consulting Provider: Rickie Hernadez Reason for Consult: SVT, PAF w/ RVR EMERGENT Consult: No MD Notified: Yes Date Notified: 08/17/21 Time Notified: 02:52 Method of Notification: called per ED. Reason For Visit: SVT, PAF W/ RVR Diagnosis Discharge Diagnosis (1) Atrial fibrillation with RVR: Status: Acute Code(s): I48.91 - Unspecified atrial fibrillation Medications at Discharge Home Medications apixaban [Eliquis] 5 mg PO BID #60 tab 08/18/21 flecainide 150 mg PO BID #60 tab 08/18/21 metoprolol tartrate 50 mg PO BID #60 tab 08/18/21 Hospital Course Operations None Procedures 2-D Echocardiogram and Cardioversion Summary of Care Provided Minutes Spent on Discharge: 37 Hospital Course: Mr. Hardwick is a 26-year-old male who presented to the emergency department at [facility] on 08/17/2020 with a chief complaint of palpitations. The patient reported that he had intermittent episodes of feeling his heart racing and having palpitations over the last 3 weeks prior to presentation. He indicated this was predominantly noted at night and would wake him up from sleeping. He stated this was typically around 3 or 4 AM. He denied any associated chest pain, lightheadedness, or dizziness. Upon initial evaluation the emergency department his rate was 132 and was thought to be in SVT for which he received adenosine 6 mg followed by 12 mg and then had a DC cardioversion. This subsequently transition him into atrial fibrillation. Cardiology was then called and they requested a reattempt at DC cardioversion but unfortunately this was not successful and he remained in atrial fibrillation. He was therefore admitted to the telemetry unit and placed on IV Cardizem as well as anticoagulat ion with Eliquis. He was evaluated by cardiology at that time and he was given a dose of amiodarone and maintained on his rate controlling medication however was converted to metoprolol 50 mg p.o. twice daily and plan for cardioversion was made that afternoon. Placement was taken down to the cardiology procedure area at which time a DC cardioversion was performed and successful. Overnight from 08/17/2021 to 08/18/2021 he had a couple of short bursts of SVT which rapidly resolved on their own back to normal sinus rhythm. We were preparing him for discharge on the a.m. of 08/18/2021 on a beta-hossein and Eliquis at which time he unfortunately resumed back into a tachyarrhythmia which appeared to be a flutter with 2-1 block. By the time I called Dr. Hernadez to discuss what had happened he had reverted back to normal sinus rhythm. At that time given his age and lack of comorbidities he was started on flecainide. His flecainide was dosed at approximately 10 AM and he remained in normal sinus rhythm for the following 6 hours at which time he was reevaluated and remained in normal sinus rhythm. The case again was discussed with cardiology and they wanted him discharged at that time with outpatient follow-up. An echocardiogram was done during his hospitalization showed a normal EF at 65% and normal LV function. We feel that the most likely etiology for his paroxysmal atrial flutte r/fibrillation is likely related to a untreated obstructive sleep apnea and we have referred to pulmonary medicine to be evaluated for outpatient sleep study after discharge. He was discharged home with prescriptions for Eliquis, metoprolol 50 mg p.o. twice daily, and flecainide 150 mg p.o. twice daily. He has follow-up appointment with Dr. Hernadez's physician academic assistant on 08/22/2021 at 1:45 PM and information was given for him to call the pulmonary office to schedule outpatient follow-up to get evaluated for sleep study. He was discharged in stable condition on 08/18/2021. Discharge diagnoses: Atrial fibrillation/flutter with RVR Suspected obstructive sleep apnea Super morbid obesity Physical Exam Const alert, oriented x3, no apparent distress, healthy appearing and well nourished Constitutional Narrative: Morbidly obese young white male sitting up in bed, appears comfortable nontoxic, nursing at bedside General Appearance: cooperative, comfortable, well kempt and well developed Orientation / Consciousness: awake Exam Limitations: no limitations Nutritional Appearance: morbidly obese HEENT normocephalic, head/scalp atraumatic, hearing grossly normal bilaterally and moist oral mucous membranes HEENT Narrative: Mallampati is 3-4 Eyes PERRL, EOMs intact bilaterally and conjunctivae normal Eyes Narrative: No scleral icterus Neck no lymphadenopathy, supple and no JVD Neck Narrative: Trachea midline, no thyroid management, neck is short and thick Resp normal respiratory effort, no retractions, no use of accessory muscles and clear to auscultation bilaterally Resp Narrative: Distant secondary to body habitus but clear Auscultation: Negative for crackles, rales, rhonchi or wheezes Cardio regular rate, regular rhythm, S1 normal heart sound, S2 normal heart sound, no murmurs, no rub, no gallops, no clicks and no JVD GI normal to inspection, nondistended, normoactive bowel sounds, soft to palpation, non-tender and non-distended Extremity no clubbing, cyanosis or edema Skin no rashes or lesions noted, no wounds, skin turgor normal and no jaundice Neuro oriented x3, CN's II-XII intact bilaterally, moves all extremities, no focal motor deficits and no sensory deficits noted Sensorium / Orientation: awake and alert Speech: speech normal Motor Exam: strength 5/5 throughout Psych affect normal Weight / BMI Weight Weight: 217.3 kg Body Mass Index (BMI) 64.9 ABG / Lab / Microbiology Data Result Diagrams: 08/17/21 05:28 08/17/21 05:28 Radiography Diagnostic Testing: Radiology Impression Echocardiogram 08/17/21 04:33 Interpretation Summary Normal LV size. Left ventricular systolic function is normal. The estimated ejection fraction is 65 %. Contrast injection was performed. The study was technically limited. Ordering Physician: Marika Mosquera Referring Physician: EBONY PCP Performed By: Shannan Gambino, ABY, RVT D/C Instructions Discharge Diet: Low fat / Low cholesterol Discharge Activity: Return to Normal Activity Return to work on: 08/19/21 Meaningful Use Info Meaningful Use Diagnoses (Choose all that apply): None applicable Discharge Plan Admission Admit Date/Time: 08/17/21 02:49 Primary Reason for Your Visit: Heart Racing Attending Provider: Marley Jay Primary Care Provider: Care Physician,No Primary Consulting Providers: Rickie Hernadez Discharge Orders/Prescriptions Prescriptions: New Eliquis 5 mg Tablet 5 mg PO BID Qty: 60 RF: 0 metoprolol tartrate 50 mg Tablet 50 mg PO BID Qty: 60 RF: 0 flecainide 150 mg Tablet 150 mg PO BID Qty: 60 RF: 0 Referrals / Follow Up: Care Physician,No Primary [Primary Care Provider] - Vijaya Martínez, PA [PHYSICIAN TRADESHOW WORKER] - 08/22/21 1:45 pm Nicole Drake NP, DIRECTOR PRODUCT-C [Nurse Practitioner] - See Referral Note (call office and asked to be seen for Sleep Study eval) Disposition Disposition (needs filled in before D/C Order can be placed): Home, Self Care Charges/Coding Visit Charges Inpatient E&M: 41978 Disch Hosp
--- NOTE | 2021-08-18 10:29 | CASEMGMT ---
According to the [employer] website, the following are in-network tertiary facilities: [facility], [place], [facility], [facility], [facility], [facility], [facility], and . Dane WHEELER CM
[2021-08-18] MEDS: Flecainide 150 MG Tablet PO (10:43)
--- NOTE | 2021-08-18 15:02 | CASEMGMT ---
Pt to be sent home on Eliquis at discharge and med e-scribed to [facility] retail pharmacy. Per Lisa in [facility] pharmacy, pt has no co-pay. pt provided with $10 co-pay card. Pt voices no further concerns with going home at discharge. Dane WHEELER CM
== END 2021-08-18 15:57 | disposition home or self-care (01) | DRG 309 ==
LOC: ED 02:19 → PCU 04:00
PROVIDERS: Admitting Provider Family Medicine; Emergency Provider Emergency Medicine; Visit Provider Internal Medicine
DX: I47.1 Supraventricular tachycardia (principal); Z68.44 Body mass index [BMI] 60.0-69.9, adult; I48.0 Paroxysmal atrial fibrillation; E66.01 Morbid (severe) obesity due to excess calories; E87.6 Hypokalemia; F17.220 Nicotine dependence, chewing tobacco, uncomplicated; G47.33 Obstructive sleep apnea (adult) (pediatric)
CPT/HCPCS: 36415; 80048; 80053; 83735; 84443; 84484; 85025; 85379; 92960; 93005; 93306; 97802; 99285; 99406; J7030; Q9957; A4216; C8929; J0153

== ENCOUNTER → 2021-10-19 | Outpatient (CLI) | payer BC, SELFPAY | END | disposition home or self-care (01) | LOC: SL 22:07 | PROVIDERS: Visit Provider Nurse Practitioner Acute Care | DX: G47.33 Obstructive sleep apnea (adult) (pediatric) (principal) | CPT/HCPCS: 95811 ==

== ENCOUNTER → 2021-12-08 | Outpatient (CLI) | payer BC, SELFPAY ==
[2021-12-08 09:56] LABS: Anion Gap 5 (5-15); BUN 22 mg/dL (7-18); BUN/Creat Ratio 22.6 RATIO (10-20); Calcium,Total 9.5 mg/dL (8.5-10.1); Chloride 104 mmol/L (98-107); Creatinine, Serum 0.97 mg/dL (0.70-1.30); EST Glomerular Filtration Rate 100 mL/min (>60); Est Glom Filt Rate - Afr Amer 121 mL/min (>60); Glucose 93 mg/dL (74-106); Potassium 4.3 mmol/L (3.5-5.1); Sodium Level 136 mmol/L (136-145)
== END | disposition home or self-care (01) ==
PROVIDERS: Referring Provider Physician Assistant Medical; Visit Provider Physician Assistant Medical
DX: I48.91 Unspecified atrial fibrillation (principal); I10 Essential (primary) hypertension
CPT/HCPCS: 36415; 80048

== ENCOUNTER → 2022-01-31 | Outpatient (CLI) | payer BC, SELFPAY | END | disposition home or self-care (01) | LOC: SL 11:36 | PROVIDERS: Visit Provider Nurse Practitioner Acute Care | DX: Z46.89 Encounter for fitting and adjustment of other specified devices (principal) ==

== ENCOUNTER 2022-09-06 17:13 | Emergency (ER) | payer BC, SELFPAY ==
[2022-09-06 17:15] VITALS: BP 166/89; PULSE 171; RESP 25; TEMP 36.7; O2SAT 100; BMI 73.3
[2022-09-06 17:20] VITALS: PULSE 121
--- NOTE | 2022-09-06 17:28 | EKG12_ITS ---
Test Reason : FALL Blood Pressure : / mmHG Vent. Rate : 169 BPM Atrial Rate : 000 BPM P-R Int : 000 ms QRS Dur : 086 ms QT Int : 234 ms P-R-T Axes : 000 097 -63 degrees QTc Int : 392 ms Supraventricular tachycardia rightward axis non specific ST-T changes Abnormal ECG Confirmed by JASPER BRUNSON, DANNIELLE ([id number]), supervising editor trailer DAVID FRAZIER ([id number]) on 09/10/2022 11:00:29 AM Referred By: GALEN Confirmed By:FREDERIC HUTCHINSON MD
--- NOTE | 2022-09-06 17:29 | CT_ITS ---
INDICATION: Fall 10 feet, tachycardia on anticoagulant -- TRAUMA ONLY: IV Contrast. Dont wait for creatinine EXAMINATION: CT ABDOMEN AND PELVIS WITH CONTRAST - CT Abdomen And Pelvis W/ Contrast Injection TECHNIQUE: Helically acquired images were obtained of the abdomen and pelvis following IV contrast. A radiation dose optimization technique was used for this scan. IV Contrast dosage and agent: 100 mL Isovue-300 Oral contrast: None. COMPARISON: None. FINDINGS: LOWER CHEST: Lung bases are clear. No cardiomegaly or pericardial effusion. LIVER: Homogeneous. No focal mass. GALLBLADDER AND BILIARY TREE: No calcified gallstones. No gallbladder distension or wall edema. No intra- or extrahepatic biliary ductal dilation. PANCREAS: No focal cystic or solid mass. SPLEEN: Normal size without focal cystic or solid mass. ADRENAL GLANDS: No nodules. KIDNEYS AND URETERS: Normal renal size and position. No hydronephrosis. PERITONEUM: No ascites or free air. No other fluid collection. BOWEL: No evidence of acute appendicitis. No stomach or bowel distension. No focal inflammatory change. LYMPH NODES: No enlarged mesenteric or retroperitoneal lymph nodes. VESSELS: Aorta is non-dilated. URINARY BLADDER: Unremarkable. ABDOMINAL WALL: No discrete abdominal or pelvic wall hernia. BONES: No lytic or blastic abnormality. CT/Abdomen/Pelvis WITH Contrast IMPRESSION: No CT evidence of acute abdominal or pelvic injury. Electronically Signed: Hernando Watson MD at 18:09 EDT ,
[2022-09-06 17:42] LABS: Absolute Lymphocyte Count 1.72 X10^3/uL (0.83-4.51); Absolute Neutrophil Count 8.2 X10^3/uL (2.0-7.7); Basophil# 0.03 X10^3/uL; Basophil% 0.3 % (0-1); Eosinophil# 0.07 X10^3/uL; Eosinophils% 0.6 % (0-5); Hematocrit 39.7 % (40-54); Hemoglobin 12.8 g/dL (13.0-16.5); Lymphocyte # 1.72 X10^3/ul (0.83-4.51); Lymphocyte % 15.5 % (19-41); Mean Corp Hgb Conc 32.2 g/dL (32-36); Mean Corpuscular Volume 93.2 fL (80-94); Mean Platelet Vol. 11.2 fl (6.2-12.0); Monocyte# 1.05 X10^3/uL; Monocyte% 9.5 % (0-10); NRBC Flagged by Analyzer 0 % (0-5); Neutrophil # 8.15 X10^3/uL (2.7-7.7); Neutrophil % 73.6 % (47-70); Platelet Count 212 K/mm3 (150-450); RBC Distribution Width CV 12.6 % (11.6-14.6); RBC Distribution Width SD 43.2 fl (35.1-43.9); Red Blood Count 4.26 M/mm3 (4.6-6.2); White Blood Count 11.1 K/mm3 (4.4-11.0)
[2022-09-06 17:52] LABS: International Normalized Ratio 1.1
[2022-09-06 17:53] LABS: Partial Thromboplast Time 25.6 Seconds (24.1-36.2)
--- NOTE | 2022-09-06 17:54 | ED.RN ---
pt returns from ct very red and warm. dissipating as pt returns to ed. Dr. Ahuja aware
[2022-09-06 17:57] LABS: AST(SGOT) 34 U/L (15-37); Alanine Aminotransfer ALT/SGPT 62 U/L (16-61); Albumin, Serum 3.4 g/dL (3.2-5.0); Alkaline Phosphatase 74 U/L (45-117); Anion Gap 8 (5-15); BUN 23 mg/dL (7-18); BUN/Creat Ratio 21.1 RATIO (10-20); Bilirubin, Direct 0.08 mg/dL (0.00-0.30); Calcium,Total 9.4 mg/dL (8.5-10.1); Chloride 107 mmol/L (98-107); Creatinine, Serum 1.09 mg/dL (0.70-1.30); EST Glomerular Filtration Rate 87 mL/min (>60); Est Glom Filt Rate - Afr Amer 106 mL/min (>60); Estimated Creatinine Clearance 113.71 ml/min; Globulin 3.6 g/dL (2.2-4.2); Glucose 94 mg/dL (74-106); Potassium 3.8 mmol/L (3.5-5.1); Sodium Level 140 mmol/L (136-145)
--- NOTE | 2022-09-06 18:30 | ED.RN ---
PT TOOK HOME MEDS PER PERMISSION OF DR RODRÍGUEZ INCLUDING METOPROLOL,FLECAINIDE AND ELIQUIS. PT USING URINAL
--- NOTE | 2022-09-06 18:32 | EX.ED.GENINJ ---
HPI History of Present Illness Chief Complaint: Trauma Detail of Chief Complaint: Fell 10 feet into a hole Informant: patient Onset/Context/Timing Onset: Today and Hours Mechanism/Context: Blunt Injury and Fall Location of pain/injuries: Right Knee Quality of Pain: Dull and Aching Location: Right knee Current Severity: Mild Maximum Severity: Moderate Worsened by: Movement and palpation Relieved by: Nothing Associated Symptoms Associated Symptoms: Negative for Parasthesias, Weakness, Loss of function, Inability to ambulate, Loss of consciousness or Amnesia Narrative Narrative: Patient is a 27-year-old male with history of PSVT on metoprolol and flecainide who presents after fall. He was moving furniture. The floor that he was standing on broke. He fell into a 10 foot hole. He denies hitting his head. He denies neck pain. He does complain of lower back pain and right knee pain. He denies abdominal pain. He states he is on anticoagulant for his dysrhythmia. He denies headache, visual, ocular auditory symptoms. [place] ringing's ears or decreased hearing. He denies chest pain or shortness of breath. He denies paresthesia, anesthesia or motor weakness. Tetanus Immunization: Unknown Prior similar symptoms: No Recent Illness/Hospitalization: No PFSH PFSH Medical History Atrial fibrillation with RVR HTN (hypertension), benign Morbidly obese SVT (supraventricular tachycardia) Tobacco use Home Medications amlodipine 5 mg tablet (Norvasc) 5 mg PO DAILY #30 tabs 12/08/21 [Rx Last Taken Unknown] apixaban 5 mg tablet (Eliquis) 5 mg PO BID #180 tabs 09/03/22 [Rx Last Taken Unknown] flecainide 150 mg tablet 150 mg PO BID #180 tabs 09/03/22 [Rx Last Taken Unknown] lisinopril 20 mg tablet 20 mg PO DAILY #90 tabs 09/03/22 [Rx Last Taken Unknown] metoprolol tartrate 50 mg tablet 50 mg PO BID #180 tabs 09/03/22 [Rx Last Taken Unknown] oxycodone-acetaminophen 5 mg-325 mg tablet 1 tab PO Q6H PRN PRN pain 5 days #20 TABLETS 09/06/22 [Rx Last Taken Unknown] Allergy/AdvReac Type Severity Reaction Status Date / Time amoxicillin Allergy Rash Verified 09/06/22 17:21 Family History Father Diabetes Hypertension Sleep apnea Grandmother COPD (chronic obstructive pulmonary disease) Uncle Sleep apnea Surgical History S/P adenoidectomy Social History adopted: No household members: family housing: house current occupational status: employed current occupation: [employer] current occupational exposures/hazards: Yes pets and animals: No Smoking Status: Never smoker Tobacco: How many years used: 10 Smokeless tobacco user: chewing tobacco and other Electronic Cigarette Use: not used second hand exposure: Yes (mother smoked in the past ) alcohol intake: current alcohol intake frequency: a few times a month substance use type: does not use caffeine: No ROS ROS ED Constitutional Constitutional ED: Denies chills, fever(s), subjective or sweats Eyes Eyes: Denies blurry vision or change in vision ENT ENT ED: Denies ear pain, rhinorrhea or sore throat Cardiovascular Cardiovascular: Denies chest pain, palpitations, paroxysmal nocturnal dyspnea or racing heartbeat Respiratory/Chest Respiratory/Chest: Denies cough, dyspnea, dyspnea on exertion or paroxysmal nocturnal dyspnea Gastrointestinal Gastrointestinal: Denies abdominal pain, nausea or vomiting Genitourinary Genitourinary ED: Denies dysuria, hematuria or urinary frequency Integumentary Denies Abrasions or rash Neurologic Neurologic: Denies headache(s), paresthesias or weakness Hematologic/Lymphatic Hematologic/Lymphatic: Reports easy bruising; Denies easy bleeding Allergic/Immunologic Allergic/Immunologic ED: Denies mouth swelling or tongue swelling EXAM Physical Exam Const Vital Signs: 09/06/22 17:15 09/06/22 17:20 09/06/22 17:22 Temperature 98.1 F Temperature Source Oral Pulse Rate 171 H 121 H Respiratory Rate 25 H Respiratory Effort Normal Non-Labored Respiratory Depth Normal Respiratory Pattern Normal Blood Pressure 166/89 H Blood Pressure Mean 114 Pulse Ox 100 Oxygen Delivery Method Room Air Positive well nourished, well developed and obese General Appearance ED: well developed and NAD Nutritional Appearance: obese HEENT HEENT Narrative: Head is atraumatic normocephalic. There is no evidence of trauma. There is no clinical signs of basilar skull fracture. There is no evidence of facial trauma. There is no evidence of dental trauma. There is no septal deviation hematoma. Eyes PERRL and EOMs intact bilaterally General Eye ED: Yes other Other Details: There is no subconjunctival hemorrhage noted. Neck full ROM Neck Narrative: There is no posterior neck pain. Has full active range of motion without grimacing or patient. Chest Wall inspection of chest normal and palpation of chest normal Resp normal respiratory effort and clear to auscultation bilaterally Cardio regular rhythm, S1 normal heart sound, S2 normal heart sound and no murmurs Rate: tachycardic GI normal to inspection, nondistended, normoactive bowel sounds, non-tender, non-distended and no masses Back/Spine normal to inspection; Negative for no thoracic nor lumbar tenderness Thoracic Spine / Upper Back: Negative for thoracic spinal tenderness Extremity full ROM; Negative for normal to inspection Extremity Narrative: Abrasion noted medial aspect of the right knee. He has full active range of motion. Exam is limited due to body habitus. There is no obvious effusion. Details not ballotable. There is no laxity to varus valgus stress testing. Neuro oriented x3, moves all extremities, no focal motor deficits and no sensory deficits noted Lavinia Coma Scale: document GCS findings Spontaneous Obeys Commands Oriented 15 Sensorium / Orientation: alert Motor Exam: strength 5/5 throughout Plantar Reflex: Downgoing: bilateral Psych mental status grossly normal and thought process normal Skin no rashes or lesions noted and skin turgor normal Trauma: abrasion MDM MDM MDM Narrative Medical decision making narrative: Initial EKG reveals supraventricular tachycardia rate of 169. When I entered the room he is a heart rate of 130 and his sinus. Patient is not hypotensive. The fact that he is tachycardic on anticoagulant with a 10 foot fall complains of mild back pain will obtain a CT of the abdomen and pelvis to rule out intracranial bleed. Appropriate blood work was ordered. Patient's monitor presently reveals a sinus tachycardia of 110. History & Record Review Discussion w/independent historian: EMS personnel Additional record(s) reviewed:: Prior inpatient record (Patient was admitted earlier this month for atrial fibrillation with RVR.), Prior ED visit (Not significant or related to today's presentation) and Prior labs Lab Data Attestation: I reviewed the patient's lab results. Lab results narrative: White count is slightly elevated 11,100. H&H 12.8 and 39 point have not. No leg are normal. Comprehensive metabolic panel is remarkable. ALT is 64. Labs: Laboratory Results - last 24 hr 09/06/22 09/06/22 09/06/22 17:31 17:31 17:31 WBC 11.1 H RBC 4.26 L Hgb 12.8 L Hct 39.7 L MCV 93.2 MCH 30.0 MCHC 32.2 RDW Std Deviation 43.2 RDW Coeff of Angy 12.6 Plt Count 212 MPV 11.2 Immature Gran % (Auto) 0.500 Neut % (Auto) 73.6 H Lymph % (Auto) 15.5 L [place] % (Auto) 9.5 Eos % (Auto) 0.6 Baso % (Auto) 0.3 Absolute Neuts (auto) 8.2 H Absolute Lymphs (auto) 1.72 Nucleated RBC % 0 PT 14.0 INR 1.1 APTT 25.6 Sodium 140 Potassium 3.8 Chloride 107 Carbon Dioxide 25.0 Anion Gap 8 BUN 23 H Creatinine 1.09 Estim Creat Clear Calc 113.71 Est GFR (MDRD) Af Amer 106 Est GFR (MDRD) Non-Af 87 BUN/Creatinine Ratio 21.1 H Glucose 94 Calcium 9.4 Total Bilirubin 0.20 Direct Bilirubin 0.08 AST 34 ALT 62 H Alkaline Phosphatase 74 Total Protein 7.0 Albumin 3.4 Globulin 3.6 Radiography Diagnostic Testing: Clinical Impression(s) from Imaging Studies Abdomen/Pelvis CT 09/06/22 17:29 IMPRESSION: No CT evidence of acute abdominal or pelvic injury. Electronically Signed: Hernando Watson MD at 18:09 EDT , Rhythm Strip Rhythm Strip: Sinus Tach Rate: 132 Ectopy: None EKG Initial EKG: Interpretation: SVT (Rate 169. [place] to the right. Cures duration 86 ms. QT duration 234 ms. Nonseptic changes which in all likelihood is rate dependent.) Management Discussion w/another healthcare provider: Radiologist Treatment and Re-Evaluation Narrative: CT of the abdomen and pelvis per radiologist was negative. Patient was informed if negative would discharge to home. He was informed he will feel worse over the next several days and hurt in more places and he presently does. Reviewing scan patient was permitted to take his flecainide and metoprolol. His heart rate did improve from 121 30-1 10. Discharge Plan Triage Chief Complaint: Trauma Other Complaint: Palpitations ED Provider: Keon Ahuja Dx/Rx/DC Orders Clinical Impression: Fall with injury, Morbidly obese, MICHELLE (obstructive sleep apnea), Atrial fibrillation with RVR, Sinus tachycardia, Abrasion, right knee, initial encounter Instructions: ED Abrasion, ED AFIB, ED Mechanical Fall Prescriptions: New oxycodone-acetaminophen [oxycodone-acetaminophen] 5-325 mg tablet 1 tab PO Q6H PRN PRN (Reason: pain) 5 Days Qty: 20 0RF No Action amlodipine [Norvasc] 5 mg tablet 5 mg PO DAILY Qty: 30 11RF Eliquis 5 mg tablet 5 mg PO BID Qty: 180 3RF flecainide 150 mg tablet 150 mg PO BID Qty: 180 3RF lisinopril 20 mg tablet 20 mg PO DAILY Qty: 90 3RF metoprolol tartrate 50 mg tablet 50 mg PO BID Qty: 180 3RF Primary Care Provider: Care Physician,No Primary Referrals: Care Physician,No Primary [Primary Care Provider] - Doctor,Your [Non-Staff] - 1 Week if not improving
[2022-09-06] MEDS: Diphth,Pertuss(Acell),Tet Vac 0.5 ML Vial IM (19:07)
== END 2022-09-06 19:13 | disposition home or self-care (01) ==
PROVIDERS: Emergency Provider Emergency Medicine; Visit Provider Emergency Medicine
DX: S80.211A Abrasion, right knee, initial encounter (principal); I48.91 Unspecified atrial fibrillation; I47.1 Supraventricular tachycardia; E66.01 Morbid (severe) obesity due to excess calories; I10 Essential (primary) hypertension; G47.33 Obstructive sleep apnea (adult) (pediatric); Z87.891 Personal history of nicotine dependence; Z79.899 Other long term (current) drug therapy; Z79.01 Long term (current) use of anticoagulants; W19.XXXA Unspecified fall, initial encounter
CPT/HCPCS: 74177; 80048; 80076; 85025; 85610; 85730; 90715; 93005; 96372; 99282; Q9967; A4216